=== PATIENT | male | born 1960 | race African-American/Black ===

== ENCOUNTER 2017-10-20 14:16 | Emergency (ER) | payer MEDICARE, MEDICAID ==
[~2017-10-20] VITALS: Ht 182.9 cm; Wt 114.0 kg
[~2017-10-20 14:16] MED LIST: AMOX-419 PO; CEPH500C5 PO; CIPR7.5D2 EACH EAR; HYDR-569 PO; METH-360 PO; NEOM10DR45 EACH EAR; ONDA4TAB6 PO
[2017-10-20 15:01] VITALS: BP 141/92
[2017-10-20] MEDS ORDERED: LIDOcaine 1% 30ml vial SQ STA (16:13)
[2017-10-20] MEDS ORDERED: FLUT16SP20 BOTHNARES (17:36)
== END 2017-10-20 17:45 | disposition home or self-care (01) ==
LOC: ER 14:17
DX: H60.02 Abscess of left external ear (principal); K21.9 Gastro-esophageal reflux disease without esophagitis; J44.9 Chronic obstructive pulmonary disease, unspecified; I10 Essential (primary) hypertension; F41.9 Anxiety disorder, unspecified; E11.9 Type 2 diabetes mellitus without complications; Z87.891 Personal history of nicotine dependence; Z88.0 Allergy status to penicillin
CPT/HCPCS: 10060; 99284; A6449; J3490

== ENCOUNTER 2017-11-19 11:25 | Emergency (ER) | payer MEDICARE, MEDICAID ==
[~2017-11-19] VITALS: Ht 182.9 cm; Wt 118.0 kg
[~2017-11-19 11:25] MED LIST changes: -AMOX-419 PO; +FLUT16SP20 BOTHNARES; -NEOM10DR45 EACH EAR
[2017-11-19] MEDS ORDERED: NEOM10DR45 OT (12:05)
[2017-11-19 12:36] VITALS: BP 144/108
== END 2017-11-19 12:38 | disposition home or self-care (01) ==
LOC: ER 11:26
DX: H60.93 Unspecified otitis externa, bilateral (principal); I10 Essential (primary) hypertension; J44.9 Chronic obstructive pulmonary disease, unspecified; K21.9 Gastro-esophageal reflux disease without esophagitis; E11.9 Type 2 diabetes mellitus without complications; Z88.5 Allergy status to narcotic agent
CPT/HCPCS: 99283

== ENCOUNTER 2017-11-23 08:42 | Emergency (ER) | payer MEDICARE, MEDICAID ==
[~2017-11-23] VITALS: Ht 182.9 cm; Wt 155.5 kg
[~2017-11-23 08:42] MED LIST changes: +NEOM10DR45 OT
[2017-11-23 08:48] VITALS: BP 136/119
== END 2017-11-23 10:30 | disposition home or self-care (01) ==
LOC: ER 08:43
DX: H60.93 Unspecified otitis externa, bilateral (principal); I10 Essential (primary) hypertension; J44.9 Chronic obstructive pulmonary disease, unspecified; K21.9 Gastro-esophageal reflux disease without esophagitis; E11.9 Type 2 diabetes mellitus without complications; Z98.890 Other specified postprocedural states; Z88.5 Allergy status to narcotic agent; Z79.899 Other long term (current) drug therapy
CPT/HCPCS: 99281

== ENCOUNTER 2018-11-19 12:45 | Emergency (ER) | payer MEDICARE, MEDICAID ==
[~2018-11-19] VITALS: Ht 182.9 cm; Wt 127.0 kg
[~2018-11-19 12:45] MED LIST changes: -CEPH500C5 PO; +HYDR-4383 PO; -HYDR-569 PO; -NEOM10DR45 OT
[2018-11-19 12:57] VITALS: BP 149/83
[2018-11-19] MEDS ORDERED: CefTRIAXone 250MG inj IM ONE (14:00)
[2018-11-19] MEDS ORDERED: azithromycin 250mg tablet PO ONE (14:00)
[2018-11-19] MEDS ORDERED: CefTRIAXone 250MG IM Kit w/LIDOcaine IM ONE (14:10)
--- NOTE | 2018-11-19 15:16 | NUR ---
RN TREAT AND DC PT
== END 2018-11-19 14:30 | disposition home or self-care (01) ==
LOC: ER 12:48
DX: J02.9 Acute pharyngitis, unspecified (principal); Z20.2 Contact with and (suspected) exposure to infections with a predominantly sexual mode of transmission; I10 Essential (primary) hypertension; J44.9 Chronic obstructive pulmonary disease, unspecified; K21.9 Gastro-esophageal reflux disease without esophagitis; E11.9 Type 2 diabetes mellitus without complications; Z98.890 Other specified postprocedural states; Z88.5 Allergy status to narcotic agent; Z79.1 Long term (current) use of non-steroidal anti-inflammatories (NSAID); Z79.899 Other long term (current) drug therapy
CPT/HCPCS: 96372; 99283; J0696

== ENCOUNTER 2018-11-30 22:34 | Emergency (ER) | payer MEDICARE, MEDICAID | END 2018-11-30 23:24 | disposition left against medical advice (07) | LOC: ER 22:35 | DX: J02.9 Acute pharyngitis, unspecified (principal); Z53.21 Procedure and treatment not carried out due to patient leaving prior to being seen by health care provider ==